=== PATIENT | male | born 1995 | race Caucasian/White ===

== ENCOUNTER 2020-03-30 17:44 | Emergency (ER) | payer OTHER ==
[2020-03-30] MEDS ORDERED: NAPROXEN500 MG PO (19:32)
== END 2020-03-30 19:40 | disposition home or self-care (01) ==
LOC: ER1 17:44
DX: G43.909 Migraine, unspecified, not intractable, without status migrainosus (principal); R42 Dizziness and giddiness; F17.210 Nicotine dependence, cigarettes, uncomplicated; Z88.2 Allergy status to sulfonamides
CPT/HCPCS: 96372; 99283

== ENCOUNTER 2020-04-07 23:48 | Emergency (ER) | payer OTHER ==
[~2020-04-07 23:48] MED LIST: NAPROXEN500 MG PO
== END 2020-04-08 03:05 | disposition home or self-care (01) ==
LOC: ER1 23:48
DX: R51.9 Headache, unspecified (principal); F17.210 Nicotine dependence, cigarettes, uncomplicated; Z88.2 Allergy status to sulfonamides
CPT/HCPCS: 99283

== ENCOUNTER 2020-04-12 22:08 | Emergency (ER) | payer OTHER | END 2020-04-13 03:59 | disposition left against medical advice (07) | LOC: ER1 22:08 | DX: K04.7 Periapical abscess without sinus (principal); Z53.21 Procedure and treatment not carried out due to patient leaving prior to being seen by health care provider ==

== ENCOUNTER 2020-05-04 20:05 | Emergency (ER) | payer OTHER | END 2020-05-04 22:17 | disposition left against medical advice (07) | LOC: ER1 20:05 | DX: R20.2 Paresthesia of skin (principal); Z53.21 Procedure and treatment not carried out due to patient leaving prior to being seen by health care provider | CPT/HCPCS: 93005 ==

== ENCOUNTER 2020-07-12 05:10 | Emergency (ER) | payer OTHER ==
[2020-07-12 06:29] LABS: HEMOGLOBIN 15.4 gm/dl (14.0-17.5); RED BLOOD COUNT 4.81 M/UL (4.20-5.50); WHITE BLOOD COUNT 5.9 K/UL (4.5-11.0)
[2020-07-12 07:11] LABS: BUN/CREATININE RATIO 16 (0-10)
== END 2020-07-12 08:40 | disposition home or self-care (01) ==
LOC: ER1 05:10
PROVIDERS: Internal Medicine
DX: R42 Dizziness and giddiness (principal); F17.210 Nicotine dependence, cigarettes, uncomplicated; Z20.822 Contact with and (suspected) exposure to COVID-19; Z88.2 Allergy status to sulfonamides
CPT/HCPCS: 0240U; 80053; 85025; 99284

== ENCOUNTER 2021-05-17 14:58 | Emergency (ER) | payer SELFPAY ==
[2021-05-17] MEDS ORDERED: ZYRTEC10 MG PO (15:31)
[2021-05-17] MEDS ORDERED: CORTIZONE-10 PL28 GM TP (15:31)
== END 2021-05-17 15:40 | disposition home or self-care (01) ==
LOC: ER1 14:58
DX: L24.9 Irritant contact dermatitis, unspecified cause (principal); F17.290 Nicotine dependence, other tobacco product, uncomplicated
CPT/HCPCS: 99283